=== PATIENT | female | born 2000 | race Caucasian/White ===

== ENCOUNTER 2021-02-18 07:02 | Outpatient (CLI) | payer BC, OTHER | END 2021-02-18 23:59 | disposition home or self-care (01) | LOC: LAB 07:02 | PROVIDERS: ATTEND Otolaryngology | DX: Z01.812 Encounter for preprocedural laboratory examination (principal); Z20.822 Contact with and (suspected) exposure to COVID-19 ==

== ENCOUNTER 2021-02-19 08:27 | Day surgery (SDC) | payer BC, OTHER ==
[2021-02-19] MEDS ORDERED: METOCLOPRAMIDE HCL 10 MG/2 ML VIAL IV ONE (08:28)
[2021-02-19] MEDS ORDERED: SEVOFLURANE 250 ML BOTTLE IH ONE (08:28)
[2021-02-19] MEDS ORDERED: LIDOCAINE-MPF 2% 5 ML VIAL MC ONE (08:28)
[2021-02-19] MEDS ORDERED: DEXAMETHASONE SOD PHOSPHATE 4 MG INJ IV ONE (08:28)
[2021-02-19] MEDS ORDERED: GLYCOPYRROLATE 0.2 MG/ML VIAL MC ONE (08:28)
[2021-02-19] MEDS ORDERED: CEFAZOLIN 1 G VIAL IV ONE (08:28)
[2021-02-19] MEDS ORDERED: PROPOFOL 200 MG/20 ML BOTTLE IV ONE (08:28)
[2021-02-19] MEDS ORDERED: ONDANSETRON 4 MG/2 ML VIAL IV ONE (08:28)
[2021-02-19] MEDS ORDERED: NEOSTIGMINE METHYLSULFATE 10 MG/10 ML VIAL IV ONE (08:28)
[2021-02-19] MEDS ORDERED: CEFAZOLIN 1 G in IV DEXTROSE 5% 50 ML IV ONE ×2 (09:00→09:45)
[2021-02-19 09:15] LABS: BASOPHILS % (AUTO) 0.4 % (0.0-2.0); EOSINOPHILS # (AUTO) 0.1 K/uL (0.0-0.7); EOSINOPHILS % (AUTO) 0.5 % (0.0-7.0); HEMATOCRIT 37.1 % (31.2-41.9); HEMOGLOBIN 12.3 g/dL (10.9-14.3); LYMPHOCYTES # (AUTO) 2.9 K/uL (20.0-40.0); LYMPHOCYTES % (AUTO) 25.9 % (20.5-74.5); MEAN CORPUSCULAR HEMOGLOBIN 28.2 uug (24.7-32.8); MEAN CORPUSCULAR HGB CONC 33 g/dL (32.3-35.6); MEAN CORPUSCULAR VOLUME 85.4 fL (75.5-95.3); MONOCYTES # (AUTO) 0.6 K/uL (2.0-10.0); MONOCYTES % (AUTO) 5.4 % (0-11); NEUTROPHILS # (AUTO) 7.6 K/uL (1.8-8.9); NEUTROPHILS % (AUTO) 67.8 % (31.5-64.5); PLATELET COUNT (AUTO) 357 K/uL (179-408); RED BLOOD CELL COUNT(AUTO) 4.34 MIL/uL (3.63-4.92); WHITE BLOOD COUNT (AUTO) 11.2 K/uL (3.8-11.8)
[2021-02-19 09:16] LABS: CREATININE 0.9 mg/dL (0.6-1.3); POTASSIUM 4.3 mmol/L (3.5-5.1)
[2021-02-19 09:17] LABS: *BILIRUBIN,URIN NEGATIVE (NEGATIVE); *BLOOD, URINE 2+ (NEGATIVE); *CLARITY,URINE CLEAR (CLEAR); *COLOR,URINE YELLOW (YELLOW); *KETONES,URINE NEGATIVE (NEGATIVE); *URINE HCG, QUAL NEGATIVE (NEGATIVE); LEUKOCYTE ESTERASE ,URINE NEGATIVE (NEGATIVE); NITRITE, URINE NEGATIVE (NEGATIVE); PH,URINE 6.5 (5.0-8.0); UGLUCOSE NEGATIVE (NEGATIVE)
[2021-02-19] MEDS ORDERED: PHENYLEPHRINE 1% (EXTRA STR) NASAL SPRAY NS ONE (09:18)
[2021-02-19] MEDS ORDERED: LIDOCAINE 1%-EPI 1:100,000 20 ML VIAL ONE (09:18)
[2021-02-19] MEDS ORDERED: HYDROMORPHONE 2 MG/1 ML DISP.SYRIN ONE (09:53)
[2021-02-19] MEDS ORDERED: ROCURONIUM BROMIDE 50 MG/5 ML VIAL ONE ×2 (09:53→11:08)
[2021-02-19] MEDS ORDERED: MIDAZOLAM HCL 2 MG/2 ML VIAL ONE (09:53)
[2021-02-19] MEDS ORDERED: BACITRACIN ZINC OINT 15 GM TUBE ONE (11:08)
[2021-02-19 12:51] LABS: WBC,URINE 0-3 /HPF (0-3)
[2021-02-19 12:52] LABS: BACTERIA,URINE MODERATE /HPF (NONE SEEN); SQUAMOUS EPITHELIAL CELL,UR MODERATE /HPF (NONE SEEN)
[2021-02-19] MEDS ORDERED: ONDANSETRON 4 MG/2 ML VIAL ONE (13:52)
== END 2021-02-19 14:30 | disposition home or self-care (01) ==
LOC: DS 08:27
PROVIDERS: ATTEND Otolaryngology
DX: J34.2 Deviated nasal septum (principal); J34.3 Hypertrophy of nasal turbinates; J34.89 Other specified disorders of nose and nasal sinuses; Z79.899 Other long term (current) drug therapy; Z98.890 Other specified postprocedural states
CPT/HCPCS: 30140; 30420; 36415; 80048; 81001; 84703; 85025; 85610; 85730; 87086; 88304; J0690 ×2; J1100; J1170; J2250; J2405 ×2; J2765; J3490 ×5; J7060; A4649